=== PATIENT | female | born 1940 | race Caucasian/White ===

== ENCOUNTER 2017-09-13 10:52 | Outpatient (CLI) | payer MEDICARE, BC ==
[2017-09-13] MEDS ORDERED: ISOVUE-370 76%-LOCM 1 ML ONE (13:27)
== END 2017-09-13 10:53 | disposition home or self-care (01) ==
LOC: BICCT 10:52
PROVIDERS: ATTEND Obstetrics & Gynecology
DX: R10.9 Unspecified abdominal pain (principal); R10.2 Pelvic and perineal pain; K57.90 Diverticulosis of intestine, part unspecified, without perforation or abscess without bleeding; K44.9 Diaphragmatic hernia without obstruction or gangrene; Z87.19 Personal history of other diseases of the digestive system
CPT/HCPCS: 74177

== ENCOUNTER 2018-07-05 13:38 | Observation (INO) | payer MEDICARE, BC ==
[2018-07-05] MEDS ORDERED: Nitroglycerin 2% Ointment 1 INCH/1 GM Packet ONE (14:08)
[2018-07-05] MEDS ORDERED: Acetaminophen 500 MG TAB ONE (14:08)
[2018-07-05 14:18] LABS: #Basophils 0.1 thou/uL (0.0-0.2); #Lymphocytes 3.5 thou/uL (1.20-3.40); #Monocytes 0.8 thou/uL (0.11-0.59); %Basophils 0.5 % (0.0-1.0); %Eosinophils 0.1 % (0.0-10.0); %Lymphocytes 33.5 % (21.0-51.0); %Monocytes 8.1 % (0.0-10.0); %Neutrophils 57.8 % (42.0-75.0); Hemoglobin 14.5 g/dL (12.0-16.0); Mean Corpuscular HGB CONC 33.5 g/dL (32.0-36.0); Mean Corpuscular Hemoglobin 26.9 pg (27.0-31.0); Mean Corpuscular Volume 80.4 fL (78.0-98.0); Mean Platelet Volume 7.4 fL (7.4-10.4); Platelet Count 256 thou/uL (130-400); RBC Distribution Width 12.9 % (11.5-14.5); Red Blood Cell (RBC) Count 5.39 mill/uL (4.20-5.40); White Blood Cell (WBC) Count 10.3 thou/uL (4.8-10.8)
[2018-07-05 14:33] LABS: ALT (SGPT) 13 U/L (8-55); AST (SGOT) 17 U/L (5-34); Albumin 4.3 g/dL (3.4-4.8); Alkaline Phosphatase 53 U/L (40-150); Anion Gap 12 mmol/L (10-20); BUN (Urea Nitrogen) 15 mg/dL (9.8-20.1); Bilirubin, Total 0.9 mg/dL (0.2-1.2); Calc. Creatinine Clearance 0 mL/min (70-130); Calcium 9.4 mg/dL (7.8-10.44); Carbon Dioxide 24 mmol/L (23-31); Chloride 109 mmol/L (98-107); Estimated GFR-MDRD 64; Globulin 3.2 g/dL (2.4-3.5); Glucose 108 mg/dL (83-110); Potassium 3.7 mmol/L (3.5-5.1); Protein, Total 7.5 g/dL (6.0-8.3); Sodium 141 mmol/L (136-145)
[2018-07-05] MEDS ORDERED: diphenhydrAMINE 50 MG/ML VIAL ONE (15:25)
[2018-07-05] MEDS ORDERED: Metoclopramide HCl 10 MG/2 ML VIAL ONE (15:25)
--- NOTE | 2018-07-05 15:30 | CT ---
CT OF THE BRAIN WITHOUT CONTRAST: Comparison: None. History: Dizziness for 5 days, difficulty walking. Technique: Multiple contiguous axial images were obtained in a CT of the brain without contrast. FINDINGS: There are scattered hypodensities in the subcortical and periventricular white matter, likely seconda ry to small vessel ischemic disease. No large confluent infarction is seen. There is no evidence of h ydrocephalus, intracranial hemorrhage, or extraaxial fluid collection. The calvarium and overlying soft tissues are unremarkable. The visualized paranasal sinuses and masto id air cells are well aerated. IMPRESSION: No evidence of acute intracranial abnormality. POS: [facility]
--- NOTE | 2018-07-05 15:31 | RAD ---
PORTABLE CHEST ONE VIEW: History: Chest pain. Comparison: None available. FINDINGS: Cardiac silhouette is magnified by projection. Pulmonary vasculature is unremarkable. Mediastinum is midline. No confluent airspace consolidation or evidence of pneumothorax. Mild atelectasis left base. Metallic clips overlie the left axilla. environmental monitoring technician leads overlie the chest. IMPRESSION: No active cardiopulmonary abnormalities are demonstrated. POS: [facility]
[2018-07-05 17:39] LABS: Troponin I Less than 0.010 ng/mL (< 0.028)
[2018-07-05 18:28] VITALS: BMI 32.5
[2018-07-05 21:26] LABS: Troponin I Less than 0.010 ng/mL (< 0.028)
[2018-07-05] MEDS ORDERED: Acetaminophen 325 MG TAB PO PRN (21:54)
[2018-07-05] MEDS ORDERED: traMADol HCl 50 MG TAB PO PRN (21:55)
[2018-07-05] MEDS ORDERED: hydrALAZINE 20 MG/ML VIAL SLOW IVP PRN (21:55)
[2018-07-05] MEDS ORDERED: Calcium Carbonate 500 MG ChewTAB PO PRN (21:56)
[2018-07-05] MEDS ORDERED: Ondansetron ODT 4 MG TAB SL PRN (21:56)
[2018-07-05] MEDS ORDERED: Ondansetron PF 4 MG/2 ML Vial IVP PRN (21:56)
[2018-07-06 10:17] LABS: ALT (SGPT) 9 U/L (8-55); AST (SGOT) 11 U/L (5-34); Albumin 3.7 g/dL (3.4-4.8); Alkaline Phosphatase 52 U/L (40-150); Anion Gap 10 mmol/L (10-20); BUN (Urea Nitrogen) 15 mg/dL (9.8-20.1); Bilirubin, Total 0.9 mg/dL (0.2-1.2); Calc. Creatinine Clearance 74 mL/min (70-130); Calcium 8.4 mg/dL (7.8-10.44); Carbon Dioxide 22 mmol/L (23-31); Cardiac Risk 5.5 (Less than 4.5); Chloride 111 mmol/L (98-107); Cholesterol 160 mg/dl (< 200 Desired); Estimated GFR-MDRD 71; Globulin 2.6 g/dL (2.4-3.5); Glucose 103 mg/dL (83-110); HDL Cholesterol 29 mg/dL (>60 Neg Risk); LDL Cholesterol, Calculated 108 mg/dL; Potassium 3.7 mmol/L (3.5-5.1); Protein, Total 6.3 g/dL (6.0-8.3); Sodium 139 mmol/L (136-145); Triglycerides 116 mg/dL (Less than 150)
[2018-07-06 11:04] LABS: #Basophils 0.1 thou/uL (0.0-0.2); #Lymphocytes 2.4 thou/uL (1.20-3.40); #Monocytes 0.7 thou/uL (0.11-0.59); #Neutrophils 4.6 thou/uL (1.40-6.50); %Basophils 0.7 % (0.0-1.0); %Eosinophils 0.5 % (0.0-10.0); %Lymphocytes 30.5 % (21.0-51.0); %Monocytes 9.5 % (0.0-10.0); %Neutrophils 58.8 % (42.0-75.0); Hemoglobin 13.5 g/dL (12.0-16.0); Mean Corpuscular HGB CONC 32.6 g/dL (32.0-36.0); Mean Corpuscular Hemoglobin 27.3 pg (27.0-31.0); Mean Corpuscular Volume 83.9 fL (78.0-98.0); Mean Platelet Volume 8.3 fL (7.4-10.4); Platelet Count 281 thou/uL (130-400); RBC Distribution Width 13.4 % (11.5-14.5); Red Blood Cell (RBC) Count 4.95 mill/uL (4.20-5.40); White Blood Cell (WBC) Count 7.8 thou/uL (4.8-10.8)
[2018-07-06 11:44] VITALS: TEMP 97.8
--- NOTE | 2018-07-06 16:10 | PDOC.EVN ---
Event Note - Event Note Event Note: Ms. Ricks was seen and examined for feeling dizzy and lightheaded. She says this has been occurring over the past few days. She also noted some elevation in her blood pressure off and on. she denies any chest pain or shortness of breath. She has had vertigo, before, but says it was not as bed as that. She denies any weakness or numbness in her extremities. Full details are outlined by Korin Goss PA-C. O: vss HEENT- PERRLA, ears- TM- wax in external canal, but no evidence of significant bulging of the drum, and fluid Neck- no adenopathy or bruits LUNG- CTA CV- RRR, no murmurs EXT- no edema Neuro- normal with exception of positive Rhomberg A/P Suspect she has some balance problems ( Proprioception) which was exaggerated by a probable sinus infection. Her blood pressure was slightly labile, but mostly controlled. I am reluctant to start antihypertensive, in fear that it may cause her blood pressure to fall too low. She can be safely discharged, with close follow-up. She will need to establish a PCP, and monitor and record her blood pressures, and discuss with her PCP She also has an abnormal EKG- ( Sinus with a LAFB)- I do not believe this was contributing to her symptoms, but should be followed up. I discussed this with her as well.
[2018-07-06 16:21] VITALS: BP 151/69
--- NOTE | 2018-07-07 07:33 | HP ---
CHIEF COMPLAINT: Dizziness and headaches, admitted with hypertensive urgency. HISTORY OF PRESENT ILLNESS: This is a 78-year-old woman admitted to Observation with hypertensive urgency. She presented to the ED yesterday afternoon complaining of gradually worsening dizziness and gradually worsening headaches. She reports being unable to "walk in a straight line." She denies having any spinning sensation and reports that she has had vertigo in the past, but this was very different. Per ED note, she had experienced chest pain; however, the patient denies experiencing any chest discomfort or pain. She reports having a "blood pressure problem", but has never been on antihypertensives in the past. She does check her blood pressure regularly and states her systolic blood pressure ranges between 100 to 105. Her symptoms first began on Tuesday when she bent over out of a chair and suddenly felt very lightheaded. She checked her blood pressure with a wrist cuff, which showed systolic of 120. Later in the weekend it got as high as 140 with a diastolic of 100. Reports long travel by car to and from [place]. Dizziness has been intermittent, but yesterday it was significantly worse and associated with an occipital headache that was mild and gradually worsened. She denies ay trauma or injuries. No speech changes, or vision disturbances. Her initial blood pressure was 210/80. She states since admission she has felt significantly better. This morning, she is able to walk to and from the restroom without any difficulties. Denies any further episodes of dizziness. Her headache has completely resolved. Denies any associated nausea or vomiting. Continues to deny any episodes of chest pain or breathlessness. The patient is concerned about recently raised blood pressure but otherwise feeling well in herself without any complaints. REVIEW OF SYSTEMS: CONSTITUTIONAL: No recent fever, chills, or sweats. EYES: Denies any eye pain or any visual disturbances. ENT: Negative ears, nose, and throat review of systems. Denies any rhinorrhea or cough. CARDIOVASCULAR: Denies any chest pain or palpitations. Negative cardiovascular review of systems. RESPIRATORY: Denies having any cough or shortness of breath. GI: Reports having a good appetite without any nausea or vomiting. Denies any changes with her bowels. : Female. Negative genitourinary review of systems. No dysuria or frequency. MUSCULOSKELETAL: Denies any recent falls or injuries. Does not have any back pain. SKIN: No recent rash or skin changes. NEUROLOGIC: Dizziness is fully resolved. Denies having any focal weakness. Headache is also resolved. No confusion. No visual disturbance. Denies any vertigo. HEMO/LYMPHATIC: No abnormal clotting. No lymphadenopathy. PHYSICAL EXAMINATION: VITAL SIGNS: Temperature 97.6, pulse 60, respirations 22, O2 saturation 95% on room air, and blood pressure 127/60. HEENT: Normocephalic and atraumatic. Pupils equal, round, and reactive to light. Sclerae are anicteric. Oropharynx is clear. Mucous membranes moist. NECK: Supple without any lymphadenopathy. RESPIRATORY: No apparent respiratory distress. No wheezes, rales, or rhonchi. Breath sounds clear and equal bilaterally. CARDIOVASCULAR: Heart regular rate and rhythm. No audible murmurs. ABDOMEN: Soft, nontender, and nondistended. Normoactive bowel sounds present. EXTREMITIES: No clubbing, cyanosis, or edema. Able to move all limbs. Strength 4/4 with normal sensation. NEUROLOGIC: No focal neurology defect. Speech is normal. SKIN: Warm and dry with no rash. PSYCHIATRIC: Normal affect. ALLERGIES: Adhesive, Codeine. CURRENT MEDICATIONS: 1. Esomeprazole Magnesium 40 mg daily 2. Alendronate Sodium 70 mg PO weekly PAST MEDICAL HISTORY: 1. Previous history of breast cancer, status post mastectomy in 2011. Continues to follow for annual examinations at [facility]. 2. History of melanoma excised from the left upper arm in 2002. Continues with annual visits at [facility]. 3. Status post hysterectomy in 1975 without any complications. 4. Reports "blood pressure problem," but never treated. Systolic blood pressure tends to run in the low 100s. SOCIAL HISTORY: Denies any tobacco use currently or in the past. Very rare alcohol consumption. She lives with her and is fully dependent. She does not require any assistive devices for mobilizing. FAMILY HISTORY: Noncontributory. LABORATORY DATA: White blood count 10.3, hemoglobin 14.5, hematocrit 42.3, and platelets 256. Sodium 141, potassium 3.7, chloride 109, BUN 15, and creatinine 0.86. Serial Troponins negative x3. INVESTIGATIONS: 1. EKG done on July 05, 2018, showed normal sinus rhythm with heart rate of 61. No ectopics. 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 Clinical impression, nonspecific EKG. 2. Chest x-ray done on July 05, 2018, showed no active cardiopulmonary abnormalities. 3. CT brain done on July 05, 2018, showed no evidence of acute intracranial abnormality. ASSESSMENT AND PLAN: 1. Hypertensive urgency. The patient was given hydralazine while in the ED after presenting with blood pressure of 210/80. Since then, high blood pressure has normalized. We will continue to monitor and discuss further with Dr. King. 2. Dizziness, fully resolved. 3. Headache. No further complaints of headache. P.r.n. medications ordered. CT brain negative. 4. Disposition: The patient is admitted to Observation. There was mention by patient of an echo being ordered, which has been further discussed with Dr. King. At present, Dr. King plans to see the patient and determine if echo is necessary and if so, she will have this as an outpatient versus inpatient. The patient was seen and all questions were answered. She is in agreement with the plan as above. Job ID: [id number] [facility]
--- NOTE | 2018-07-12 15:28 | EKG ---
Test Reason : CHEST PAIN Blood Pressure : / mmHG Vent. Rate : 061 BPM Atrial Rate : 061 BPM P-R Int : 212 ms QRS Dur : 084 ms QT Int : 416 ms P-R-T Axes : 034 -49 025 degrees QTc Int : 418 ms Sinus rhythm with 1st degree A-V block Left anterior fascicular block Left axis deviation Abnormal ECG Confirmed by MOON HOANG, EMI ([id number]), publishing editor MIGUEL ANGEL CHILDS ([id number] on 07/12/2018 3:27:38 PM Referred By: Confirmed By:EMI MUSTAFA MD
== END 2018-07-06 16:27 | disposition home or self-care (01) ==
LOC: SCSER 13:38 → 2SW 16:58
PROVIDERS: ADMIT Internal Medicine; ATTEND Internal Medicine
DX: I16.0 Hypertensive urgency (principal); Z88.5 Allergy status to narcotic agent; Z91.09 Other allergy status, other than to drugs and biological substances; Z90.710 Acquired absence of both cervix and uterus; Z90.10 Acquired absence of unspecified breast and nipple; Z85.3 Personal history of malignant neoplasm of breast; Z85.820 Personal history of malignant melanoma of skin; Z79.899 Other long term (current) drug therapy
CPT/HCPCS: 70450; 71045; 80053; 80061; 84484 ×2; 85025; 93005; 96365; 96375; 99285; G0378 ×2; 36415; 84443; J1200; J2765

== ENCOUNTER 2018-10-09 09:03 | Outpatient (CLI) | payer MEDICARE, BC ==
--- NOTE | 2018-10-09 11:24 | ULT ---
THYROID ULTRASOUND: INDICATION: History of thyroid nodule. COMPARISON: None. FINDINGS: The right thyroid lobe measures 3.5 x 1.1 x 1.5 cm. The left thyroid lobe measures 3.6 x 0.9 x 1.5 c m. Thyroid isthmus measures 0.25. There is a 3 mm anechoic nodule within the superior pole of the right thyroid gland which is a TIRADS 1 lesion. There is a 4-5 mm hypoechoic solid nodule within the inferior pole of the left thyroid gland. This is consistent with a TIRADS 4 lesion. There is an additional 2 mm hypoechoic nodule within the left mi d gland. IMPRESSION: 1. TIRADS 4 lesion within the inferior pole left thyroid gland. This lesion is below 1 cm in size. No additional followup is recommended. 2. TIRADS 1 lesion of the right upper lobe of the thyroid gland. No followup is recommended. POS: [facility]
== END 2018-10-09 09:04 | disposition home or self-care (01) ==
LOC: SCSULT 09:03
PROVIDERS: ATTEND Internal Medicine Cardiovascular Disease
DX: E04.1 Nontoxic single thyroid nodule (principal); E07.89 Other specified disorders of thyroid
CPT/HCPCS: 76536